=== PATIENT | male | born 1990 | race Caucasian/White ===

== ENCOUNTER 2016-08-27 03:51 | Emergency (ER) | payer OTHER | END 2016-08-27 04:27 | LOC: FER 03:51 | DX: Z02.83 Encounter for blood-alcohol and blood-drug test (principal) | CPT/HCPCS: 36415; 99283; G0480 ==

== ENCOUNTER 2021-04-04 17:54 | Emergency (ER) | payer OTHER ==
[~2021-04-04 17:54] MED LIST: IBUPROFEN800 MG PO; MEDROL 4MG DOSEP4 MG PO; METHADONE10 MG PO; SYMBICORT 80-10.2 GM INH; TOPAMAX50 MG PO; VENTOLIN (2.5 MG/3 M INH; VENTOLIN HFA IN18 GM INH; ZPAK PO
[2021-04-04] MEDS ORDERED: NAPROXEN500 MG PO (19:51)
== END 2021-04-04 20:10 | disposition home or self-care (01) ==
LOC: FER 17:54
DX: S86.911A Strain of unspecified muscle(s) and tendon(s) at lower leg level, right leg, initial encounter (principal); W51.XXXA Accidental striking against or bumped into by another person, initial encounter; Y93.72 Activity, wrestling
CPT/HCPCS: 73564

== ENCOUNTER → 2021-11-02 | Day surgery (SDC) | payer OTHER ==
[~2021-11-02] VITALS: Ht 182.9 cm; Wt 93.0 kg
[~2021-11-02] MED LIST changes: +NAPROXEN500 MG PO; +NUGENIX PO; +methadone PO
== END | disposition home or self-care (01) ==
LOC: FAS 10:58
DX: K64.5 Perianal venous thrombosis (principal)
CPT/HCPCS: J1100; J1885; J2250; J2405; J2704; J7120